=== PATIENT | male | born 2000 | race Caucasian/White ===

== ENCOUNTER 2020-08-08 00:13 | Emergency (ER) | payer BC ==
[~2020-08-08] VITALS: Ht 172.7 cm; Wt 54.5 kg
[2020-08-08 00:21] VITALS: TEMP 98.1
[2020-08-08 00:38] LABS: BASO # 0.1 (0.0-0.2); BASO % 0.6 % (0.0-2.0); EOS # 0.4 (0.0-0.7); GRAN # 3.8 (1.4-6.5); GRAN % 44.8 % (42.2-75.2); HEMATOCRIT 46.5 % (36.0-47.0); HEMOGLOBIN 16.2 g/dl (12.5-16.1); LYMPH # 3.5 (1.2-3.4); LYMPH % 40.9 % (20.0-51.0); MEAN CELL VOLUME 81 fl (80.0-95.0); MEAN CORPUSCULAR HEMOGLOBIN 28 pg (26.0-32.0); MEAN CORPUSCULAR HGB CONC 35 g/dl (33.0-37.0); MEAN PLATELET VOLUME 10.3 fl (7.4-10.4); MONO # 0.7 (0.1-0.6); MONO % 8.5 % (1.7-9.3); PLATELET COUNT 268 K/mm3 (130-400); RED BLOOD COUNT 5.71 M/mm3 (4.20-5.60); REDCELL DISTRIBUTION WIDTH-CV 12.1 % (11.5-14.5)
[2020-08-08 00:53] LABS: ALANINE AMINOTRANSFERASE 13 U/L (4-49); ALBUMIN 5.3 gm/dL (3.5-5.0); ALKALINE PHOSPHATASE 64 U/L (50-136); ANION GAP 16 mmol/L (7-16); AST,SGOT 27 U/L (15-37); BILIRUBIN,TOTAL 0.8 mg/dL (0.0-1.0); BLOOD UREA NITROGEN 13 mg/dL (9-20); CALCIUM 9.8 mg/dL (8.4-10.2); CARBON DIOXIDE 23 mmol/L (22-30); CHLORIDE 101 mmol/L (98-107); CREATININE, serum 1.09 (0.66-1.25); GLUCOSE 110 mg/dL (74-106); LIPASE 121 U/L (23-300); POTASSIUM 3.5 mmol/L (3.4-5.0); SODIUM 140 mmol/L (137-145); TOTAL PROTEIN 8.9 gm/dL (6.4-8.2)
[2020-08-08 01:05] LABS: TROPONIN-I < 0.012 ng/mL (0.000-0.035)
[2020-08-08] MEDS ORDERED: MOTRIN 400400 MG/TAB PO (02:17)
[2020-08-08] MEDS ORDERED: ROBAXIN 50500 MG/TAB PO (02:17)
[2020-08-08 02:34] VITALS: BP 117/80; PULSE 78
== END 2020-08-08 02:34 | disposition home or self-care (01) ==
LOC: COL.ER 00:13
PROVIDERS: Emergency Medicine
DX: R07.89 Other chest pain (principal); Z88.1 Allergy status to other antibiotic agents
CPT/HCPCS: J1885; J2060; J7030